=== PATIENT | female | born 1975 | race Caucasian/White ===

== ENCOUNTER 2022-02-09 09:07 | Emergency (ER) | payer OTHER ==
[~2022-02-09] VITALS: Ht 167.6 cm; Wt 106.1 kg
[2022-02-09 09:10] VITALS: BP 143/90
--- NOTE | 2022-02-09 09:44 | NUR ---
47 y/o female bib self, pt states this is her 10th day of having shingles and is asking for a note to specify that she can have her colonoscopy tomorrow. pt has been taking rx meds at home. upon assessment, pt has rash on mid buttock and low back. a&o x4 with even and steady gait. lungs clear bl, heart rate even and regular. pt denies any fever, cp, sob, or cough at this time. vss. patient positioned for comfort. hob elevated. bed down. ermd made aware of pt. pmh: dm2, htn, hypothyroid, asthma, hld, bipolar nka med: acyclovir
--- NOTE | 2022-02-09 09:49 | NUR ---
Patient discharged with v/s stable. Written and verbal after care instructions given and explained. Patient verbalized understanding. Ambulatory with steady gait. All questions addressed prior to discharge. Advised to follow up with PMD.
[2022-02-09 09:54] VITALS: BP 143/90
== END 2022-02-09 09:54 | disposition home or self-care (01) ==
LOC: MED 09:07
DX: B02.9 Zoster without complications (principal)
CPT/HCPCS: 99281

== ENCOUNTER 2022-04-05 14:33 | Emergency (ER) | payer OTHER ==
[~2022-04-05] VITALS: Ht 165.1 cm; Wt 108.4 kg
[2022-04-05 14:48] VITALS: BP 168/92
--- NOTE | 2022-04-05 14:54 | NUR ---
DR SHERIDAN IN TRIAGE FOR EVAL
[2022-04-05 15:08] LABS: BASOPHILS # (AUTO) 0.1 K/uL (0.00-0.22); BASOPHILS % (AUTO) 0.6 % (0.0-2.0); EOSINOPHILS # (AUTO) 0.1 K/uL (0-0.4); EOSINOPHILS % (AUTO) 1.4 % (0.0-4.0); HEMATOCRIT 45.2 % (36-48); HEMOGLOBIN 15.3 g/dL (12.0-16.0); LYMPHOCYTES # (AUTO) 1.8 K/uL (2.5-16.5); LYMPHOCYTES % (AUTO) 18.6 % (20.5-51.1); MEAN CORPUSCULAR HEMOGLOBIN 29 pg (27-31); MEAN CORPUSCULAR HGB CONC 34 g/dL (33-37); MEAN CORPUSCULAR VOLUME 84.4 fL (80-94); MONOCYTES % (AUTO) 10.2 % (1.7-9.3); NEUTROPHILS # (AUTO) 6.7 K/uL (1.8-7.7); NEUTROPHILS % (AUTO) 69.2 % (42.2-75.2); PLATELET COUNT (AUTO) 380 K/uL (140-450); RED BLOOD CELL COUNT(AUTO) 5.36 MIL/uL (4.20-5.40); RED CELL DISTRIBUTION WIDTH 14.5 % (11.6-13.7); WHITE BLOOD COUNT (AUTO) 9.7 K/uL (4.8-10.8)
--- NOTE | 2022-04-05 15:09 | NUR ---
PT AMBULATED TO ER BED 6
[2022-04-05 15:22] LABS: ALBUMIN 3.5 g/dL (3.4-5.0); ANION GAP 14.4 (8-16); CARBON DIOXIDE 23.4 mmol/L (21-32); CREATININE 1.3 mg/dL (0.6-1.3); POTASSIUM 3.8 mmol/L (3.5-5.1); TOTAL BILIRUBIN 0.2 mg/dL (0.0-1.0)
[2022-04-05 15:23] LABS: APPEARANCE,URINE CLEAR (CLEAR); BILIRUBIN,URINE NEGATIVE (NEGATIVE); BLOOD, URINE 3+ (NEGATIVE); COLOR,URINE ORANGE (YELLOW); LEUKOCYTE ESTERASE ,URINE TRACE (NEGATIVE); NITRITE, URINE POSITIVE (NEGATIVE); PH,URINE 5.5 (5.0-9.0); UGLUCOSE TRACE (NEGATIVE)
[2022-04-05] MEDS ORDERED: KETOROLAC 30 MG/ML VIAL IM ONE (15:25)
[2022-04-05 15:40] LABS: RBC,URINE TOO NUMEROUS TO COUN /HPF (0-5)
[2022-04-05 15:41] LABS: YEAST,URINE None Seen /HPF (None Seen)
[2022-04-05] MEDS ORDERED: ONDA-188 PO ×2 (16:21→17:24)
[2022-04-05] MEDS ORDERED: IBUP-1842 PO ×2 (16:21→17:24)
[2022-04-05] MEDS ORDERED: SULF-59 PO ×2 (16:21→17:24)
[2022-04-05] MEDS ORDERED: ACET-10509 PO ×2 (16:21→17:24)
--- NOTE | 2022-04-05 17:00 | NUR ---
47/F PRESENTS TO ED WITH C/O BILATERAL FLANK PAIN AND ABDOMINAL PAIN. PATIENT REPORTS SHE WAS DX WITH UTI 6 DAYS AGO AND WAS GIVEN RX OF TWO DIFFERENT ABX. PATIENT REPORTS CONCERNS STATING THE ABDOMINAL AND FLANK PAIN IS NEW FOR HER SINCE STARTING HER ABX. PATIENT DENIES FEVERS, CHILLS.
[2022-04-05] MEDS ORDERED: cefTRIAXone 1,000 MG VIAL ONE (17:01)
[2022-04-05] MEDS ORDERED: KETOROLAC 15 MG/ML VIAL ONE (17:03)
[2022-04-05] MEDS ORDERED: KETOROLAC 15 MG/ML VIAL IVP ONE (17:05)
[2022-04-05 17:13] VITALS: BP 155/89
--- NOTE | 2022-04-05 18:00 | NUR ---
IV removed, catheter intact and site benign. Applied folded 4x4 gauze and tape to stop bleeding.
--- NOTE | 2022-04-05 18:01 | NUR ---
Patient discharged with v/s stable. Written and verbal after care instructions ABOUT PYELONEPHRITIS given and explained. Patient alert, oriented and verbalized understanding of instructions. Ambulatory with steady gait. All questions addressed prior to discharge. ID band removed. Patient advised to follow up with PMD. Rx of TYLENOL EXTRA STRENGTH, MOTRIN, ZOFRAN, AND BACTRIM DS given. Patient educated on indication of medication including possible reaction and side effects. Opportunity to ask questions provided and answered.
--- NOTE | 2022-04-06 12:55 | NUR ---
LATE ENTRY. IV ROCEPHIN DISCONTINUED ON 04/02/22 AT 1801
== END 2022-04-05 18:01 | disposition home or self-care (01) ==
LOC: MED 14:33
DX: N12 Tubulo-interstitial nephritis, not specified as acute or chronic (principal); N39.0 Urinary tract infection, site not specified; I10 Essential (primary) hypertension; E07.9 Disorder of thyroid, unspecified; E78.5 Hyperlipidemia, unspecified
CPT/HCPCS: 36415; 80053; 81001; 81025; 85025; 87086; 96365; 96375; 99284; J0696; J1885

== ENCOUNTER 2022-04-27 13:32 | Emergency (ER) | payer OTHER ==
[~2022-04-27] VITALS: Ht 165.1 cm; Wt 107.6 kg
[~2022-04-27 13:32] MED LIST: ACET-10509 PO; IBUP-1842 PO; ONDA-188 PO; SULF-59 PO
[2022-04-27 13:54] VITALS: BP 160/92
[2022-04-27 16:19] LABS: BASOPHILS # (AUTO) 0.1 K/uL (0.00-0.22); BASOPHILS % (AUTO) 0.9 % (0.0-2.0); EOSINOPHILS # (AUTO) 0.1 K/uL (0-0.4); EOSINOPHILS % (AUTO) 1.7 % (0.0-4.0); HEMATOCRIT 44.4 % (36-48); HEMOGLOBIN 14.9 g/dL (12.0-16.0); LYMPHOCYTES # (AUTO) 1.9 K/uL (2.5-16.5); LYMPHOCYTES % (AUTO) 24.4 % (20.5-51.1); MEAN CORPUSCULAR HEMOGLOBIN 30 pg (27-31); MEAN CORPUSCULAR HGB CONC 34 g/dL (33-37); MEAN CORPUSCULAR VOLUME 87.9 fL (80-94); MONOCYTES # (AUTO) 0.7 K/uL (0.8-1.0); MONOCYTES % (AUTO) 8.7 % (1.7-9.3); NEUTROPHILS # (AUTO) 4.9 K/uL (1.8-7.7); NEUTROPHILS % (AUTO) 64.3 % (42.2-75.2); PLATELET COUNT (AUTO) 340 K/uL (140-450); RED BLOOD CELL COUNT(AUTO) 5.05 MIL/uL (4.20-5.40); RED CELL DISTRIBUTION WIDTH 16.4 % (11.6-13.7); WHITE BLOOD COUNT (AUTO) 7.7 K/uL (4.8-10.8)
[2022-04-27 16:49] LABS: ALBUMIN 3.8 g/dL (3.4-5.0); ANION GAP 15.7 (8-16); CARBON DIOXIDE 28.2 mmol/L (21-32); CREATININE 0.8 mg/dL (0.6-1.3); POTASSIUM 3.9 mmol/L (3.5-5.1); TOTAL BILIRUBIN 0.3 mg/dL (0.0-1.0)
[2022-04-27 17:19] LABS: APPEARANCE,URINE CLEAR (CLEAR); BILIRUBIN,URINE NEGATIVE (NEGATIVE); BLOOD, URINE 3+ (NEGATIVE); COLOR,URINE YELLOW (YELLOW); LEUKOCYTE ESTERASE ,URINE NEGATIVE (NEGATIVE); NITRITE, URINE NEGATIVE (NEGATIVE); UGLUCOSE NEGATIVE (NEGATIVE)
[2022-04-27 17:33] LABS: WBC,URINE NONE SEEN /HPF (0-5)
[2022-04-27] MEDS ORDERED: IBUP-2213 PO (18:20)
[2022-04-27] MEDS: KETOROLAC 30 MG/ML VIAL IM ONE (18:48)
[2022-04-27 18:49] VITALS: BP 148/92
== END 2022-04-27 18:49 | disposition home or self-care (01) ==
LOC: MED 13:32
DX: D25.9 Leiomyoma of uterus, unspecified (principal); N83.202 Unspecified ovarian cyst, left side; I10 Essential (primary) hypertension; E07.9 Disorder of thyroid, unspecified; Z79.899 Other long term (current) drug therapy
CPT/HCPCS: 36415; 80053; 81001; 81025; 83690; 85025; 99284

== ENCOUNTER 2022-08-15 06:34 | Emergency (ER) | payer OTHER ==
[~2022-08-15] VITALS: Ht 165.1 cm; Wt 60.8 kg
[~2022-08-15 06:34] MED LIST changes: +IBUP-2213 PO
[2022-08-15 06:50] VITALS: BP 140/89
--- NOTE | 2022-08-15 06:53 | NUR ---
TO LOBBY A/W BED AMBULATORY
--- NOTE | 2022-08-15 08:00 | NUR ---
47F presents to ED with c/o LLQ ABD pain since yesterday. Pt reports a constant, sharp piercing like, 5/10 pain to LLQ, nonradiating. Pt denies N/V/D, fevers, chills , UTI symptoms or use of meds for pain.
--- NOTE | 2022-08-15 08:04 | NUR ---
Pt taken to ultrasound via w/c.
[2022-08-15 08:41] LABS: BASOPHILS # (AUTO) 0.1 K/uL (0.00-0.22); BASOPHILS % (AUTO) 0.5 % (0.0-2.0); EOSINOPHILS # (AUTO) 0.1 K/uL (0-0.4); HEMATOCRIT 46.2 % (36-48); HEMOGLOBIN 15.5 g/dL (12.0-16.0); LYMPHOCYTES # (AUTO) 1.2 K/uL (2.5-16.5); LYMPHOCYTES % (AUTO) 9.5 % (20.5-51.1); MEAN CORPUSCULAR HEMOGLOBIN 30 pg (27-31); MEAN CORPUSCULAR HGB CONC 34 g/dL (33-37); MEAN CORPUSCULAR VOLUME 90.1 fL (80-94); MONOCYTES # (AUTO) 0.8 K/uL (0.8-1.0); MONOCYTES % (AUTO) 6.4 % (1.7-9.3); NEUTROPHILS # (AUTO) 10.9 K/uL (1.8-7.7); NEUTROPHILS % (AUTO) 82.6 % (42.2-75.2); PLATELET COUNT (AUTO) 371 K/uL (140-450); RED BLOOD CELL COUNT(AUTO) 5.14 MIL/uL (4.20-5.40); RED CELL DISTRIBUTION WIDTH 13.1 % (11.6-13.7); WHITE BLOOD COUNT (AUTO) 13.2 K/uL (4.8-10.8)
[2022-08-15 08:55] LABS: APPEARANCE,URINE SL CLOUDY (CLEAR); BILIRUBIN,URINE NEGATIVE (NEGATIVE); BLOOD, URINE 2+ (NEGATIVE); COLOR,URINE YELLOW (YELLOW); LEUKOCYTE ESTERASE ,URINE NEGATIVE (NEGATIVE); NITRITE, URINE NEGATIVE (NEGATIVE); UGLUCOSE NEGATIVE (NEGATIVE)
[2022-08-15 09:08] LABS: WBC,URINE 0-5 /HPF (0-5)
[2022-08-15 09:09] LABS: OTHER CASTS, URINE None Seen /LPF (None Seen)
[2022-08-15 09:15] VITALS: BP 134/83
[2022-08-15 09:16] LABS: ANION GAP 12.7 (8-16); CARBON DIOXIDE 25.8 mmol/L (21-32); CREATININE 0.8 mg/dL (0.6-1.3); POTASSIUM 3.5 mmol/L (3.5-5.1); TOTAL BILIRUBIN 0.3 mg/dL (0.0-1.0)
[2022-08-15 09:17] LABS: ALBUMIN 4.3 g/dL (3.4-5.0)
[2022-08-15] MEDS ORDERED: IBUP-2213 PO (10:27)
[2022-08-15] MEDS ORDERED: AMOX-1230 PO (10:27)
--- NOTE | 2022-08-15 10:45 | NUR ---
Patient discharged with v/s stable. Written and verbal after care instructions given and explained. Patient alert, oriented and verbalized understanding of instructions. with steady gait. All questions addressed prior to discharge. ID band removed. Patient advised to follow up with PMD. Rx given. Patient educated on indication of medication including possible reaction and side effects. Opportunity to ask questions provided and answered.
== END 2022-08-15 10:45 | disposition home or self-care (01) ==
LOC: MED 06:34
DX: K57.92 Diverticulitis of intestine, part unspecified, without perforation or abscess without bleeding (principal); N39.0 Urinary tract infection, site not specified; E03.9 Hypothyroidism, unspecified; I10 Essential (primary) hypertension; Z79.899 Other long term (current) drug therapy
CPT/HCPCS: 36415; 74177; 76830; 80053; 81001; 81025; 83690; 85025; 87086; 99285; Q0092; Q9967

== ENCOUNTER 2022-09-02 17:32 | Emergency (ER) | payer OTHER ==
[~2022-09-02] VITALS: Ht 167.6 cm; Wt 83.9 kg
[~2022-09-02 17:32] MED LIST changes: +AMOX-1230 PO
[2022-09-02 17:52] VITALS: BP 190/98
[2022-09-02 18:27] LABS: BASOPHILS # (AUTO) 0.1 K/uL (0.00-0.22); BASOPHILS % (AUTO) 0.7 % (0.0-2.0); EOSINOPHILS # (AUTO) 0.2 K/uL (0-0.4); EOSINOPHILS % (AUTO) 1.6 % (0.0-4.0); HEMATOCRIT 41.7 % (36-48); LYMPHOCYTES # (AUTO) 1.8 K/uL (2.5-16.5); LYMPHOCYTES % (AUTO) 18.8 % (20.5-51.1); MEAN CORPUSCULAR HEMOGLOBIN 30 pg (27-31); MEAN CORPUSCULAR HGB CONC 34 g/dL (33-37); MEAN CORPUSCULAR VOLUME 89.4 fL (80-94); MONOCYTES # (AUTO) 0.6 K/uL (0.8-1.0); MONOCYTES % (AUTO) 6.2 % (1.7-9.3); NEUTROPHILS # (AUTO) 7.1 K/uL (1.8-7.7); NEUTROPHILS % (AUTO) 72.7 % (42.2-75.2); PLATELET COUNT (AUTO) 402 K/uL (140-450); RED BLOOD CELL COUNT(AUTO) 4.66 MIL/uL (4.20-5.40); RED CELL DISTRIBUTION WIDTH 12.5 % (11.6-13.7); WHITE BLOOD COUNT (AUTO) 9.7 K/uL (4.8-10.8)
[2022-09-02 18:37] LABS: APPEARANCE,URINE SL CLOUDY (CLEAR); BILIRUBIN,URINE NEGATIVE (NEGATIVE); BLOOD, URINE 3+ (NEGATIVE); COLOR,URINE YELLOW (YELLOW); LEUKOCYTE ESTERASE ,URINE NEGATIVE (NEGATIVE); NITRITE, URINE NEGATIVE (NEGATIVE); PH,URINE 5.5 (5.0-9.0); UGLUCOSE NEGATIVE (NEGATIVE)
[2022-09-02 18:48] LABS: ALBUMIN 4.3 g/dL (3.4-5.0); ANION GAP 11.7 (8-16); CARBON DIOXIDE 30.8 mmol/L (21-32); CREATININE 0.8 mg/dL (0.6-1.3); POTASSIUM 3.5 mmol/L (3.5-5.1); TOTAL BILIRUBIN 0.2 mg/dL (0.0-1.0)
[2022-09-02 18:51] LABS: CALCIUM OXALATE CRYSTALS,UR 0-10 /HPF (None Seen); OTHER CASTS, URINE None Seen /LPF (None Seen); RBC,URINE 20-50 /HPF (0-5); WBC,URINE 0-5 /HPF (0-5)
[2022-09-02] MEDS ORDERED: BEN10 PO (19:15)
[2022-09-02 19:33] VITALS: BP 153/98
[2022-09-02] MEDS ORDERED: ESK300 PO (19:38)
[2022-09-02] MEDS ORDERED: BUS5 PO (19:38)
[2022-09-02] MEDS ORDERED: RIS1 PO (19:40)
[2022-09-02] MEDS ORDERED: PRAV10TA4 PO (19:42)
[2022-09-02] MEDS ORDERED: FERR-13 PO (19:44)
== END 2022-09-02 19:33 | disposition home or self-care (01) ==
LOC: MED 17:32
DX: R10.30 Lower abdominal pain, unspecified (principal); R31.9 Hematuria, unspecified
CPT/HCPCS: 36415; 80053; 81001; 81025; 83690; 85025; 99284

== ENCOUNTER 2023-07-18 22:43 | Emergency (ER) | payer OTHER ==
[~2023-07-18] VITALS: Ht 165.1 cm; Wt 111.1 kg
[~2023-07-18 22:43] MED LIST changes: +BEN10 PO; +BUS5 PO; +ESK300 PO; +FERR-13 PO; +PRAV10TA4 PO; +RIS1 PO
[2023-07-18 23:12] VITALS: BP 130/88; PULSE 78; RESP 20; TEMP 98; O2SAT 98
[2023-07-19 00:02] VITALS: O2SAT 98
[2023-07-19] MEDS ORDERED: methylPREDNISolone SS 125 MG in WATER STERILE 2 ML IV ONE (00:45)
[2023-07-19] MEDS ORDERED: LIDOCAINE MPF 1% 10 MG/ML VIAL INJ ONE (00:45)
[2023-07-19] MEDS ORDERED: methylPREDNISolone SS 125 MG/2 ML VIAL ONE (00:52)
[2023-07-19] MEDS ORDERED: AMOX1TAB8 PO (01:09)
[2023-07-19] MEDS ORDERED: NAPR-54 PO (01:16)
[2023-07-19] MEDS ORDERED: methylPREDNISolone SS 125 MG/2 ML VIAL IVP ONE (07:20)
== END 2023-07-19 01:20 | disposition home or self-care (01) ==
LOC: MED 22:43
DX: J20.9 Acute bronchitis, unspecified (principal); M75.32 Calcific tendinitis of left shoulder; J45.909 Unspecified asthma, uncomplicated; I10 Essential (primary) hypertension; E03.9 Hypothyroidism, unspecified; M19.90 Unspecified osteoarthritis, unspecified site; Z79.899 Other long term (current) drug therapy; Z79.1 Long term (current) use of non-steroidal anti-inflammatories (NSAID); Z79.2 Long term (current) use of antibiotics
CPT/HCPCS: 73030; 93005; 99283; J2001; J2930

== ENCOUNTER 2023-08-01 23:48 | Emergency (ER) | payer OTHER ==
[~2023-08-01] VITALS: Ht 165.1 cm; Wt 111.1 kg
[~2023-08-01 23:48] MED LIST changes: +AMOX1TAB8 PO; +NAPR-54 PO
[2023-08-01 23:59] VITALS: BP 140/86; PULSE 66; RESP 17; TEMP 97.5; O2SAT 96
[2023-08-02] MEDS ORDERED: KETOROLAC 60 MG/2 ML VIAL IM ONE (00:35)
[2023-08-02 03:33] VITALS: BP 135/76; PULSE 60; RESP 17; TEMP 97.5; O2SAT 96
== END 2023-08-02 03:23 | disposition home or self-care (01) ==
LOC: MED 23:48
DX: S43.402A Unspecified sprain of left shoulder joint, initial encounter (principal); J45.909 Unspecified asthma, uncomplicated; I10 Essential (primary) hypertension; F31.9 Bipolar disorder, unspecified; E78.00 Pure hypercholesterolemia, unspecified; Z86.39 Personal history of other endocrine, nutritional and metabolic disease; Z79.899 Other long term (current) drug therapy; Z79.1 Long term (current) use of non-steroidal anti-inflammatories (NSAID); Z79.2 Long term (current) use of antibiotics; X58.XXXA Exposure to other specified factors, initial encounter; Y92.89 Other specified places as the place of occurrence of the external cause; Y93.89 Activity, other specified; Y99.8 Other external cause status
CPT/HCPCS: 73200; 99284; J1885